=== PATIENT | female | born 1965 | race Caucasian/White ===

== ENCOUNTER 2021-04-08 05:51 | Day surgery (SDC) | payer OTHER ==
[~2021-04-08] VITALS: Ht 160 cm; Wt 61.3 kg
[~2021-04-08 05:51] MED LIST: ALBU8.5H8 IH; ARIP5TAB37 PO; ASPI81TA39 PO; BACL10TA PO; CHOL100018 PO; FLUO-191 PO; FLUT16H NASAL; HYDR-3706 PO; IBUP-2070 PO; INSLAN SQ; INSU100V SQ; LISI2.5T13 PO; LORA-999 PO; LURA40TA2 PO; MELO-107 PO; METF-1211 PO; MOME13HF IH; MONT-35 PO; PRAZ5 PO; SIMV-260 PO; TOPI100T37 PO
[2021-04-08] MEDS ORDERED: LIDOCAINE 2% 30 ML JELLY TP ONE (05:52)
[2021-04-08] MEDS ORDERED: BENZOCAINE 20% 50 MCG/SPRAY 57 GM TP ONE (05:52)
[2021-04-08] MEDS ORDERED: ALBUTEROL SULFATE 2.5 MG/0.5 ML NEB SOLUTION NEB ONE (05:52)
[2021-04-08] MEDS ORDERED: SODIUM CHLORIDE 0.9% 1,000 ML IV ONE (06:30)
[2021-04-08 06:35] LABS: COVID AG,FIA SOURCE NASOPHARYNGEAL
[2021-04-08 07:27] LABS: GLUCOMETER DEV NAME(LOC) SDS.; GLUCOSE,POINT OF CARE 115 MG/DL (70-110)
[2021-04-08] MEDS ORDERED: MIDAZOLAM HCL 5 MG/ML VIAL ONE (07:41)
[2021-04-08] MEDS ORDERED: FentaNYL CITRATE PF 100 MCG/2 ML VIAL ONE (07:41)
[2021-04-08] MEDS ORDERED: MethylPREDNISolone SOD SUCC 125 MG/2 ML VIAL IVP ONE (09:30)
[2021-04-08] MEDS ORDERED: MethylPREDNISolone SOD SUCC 125 MG/2 ML VIAL ONE (09:30)
== END 2021-04-08 10:45 | disposition home or self-care (01) ==
LOC: SURGERY 05:51
PROVIDERS: ATTEND Internal Medicine Critical Care Medicine
DX: J38.4 Edema of larynx (principal); B37.0 Candidal stomatitis; Z79.899 Other long term (current) drug therapy; F17.210 Nicotine dependence, cigarettes, uncomplicated; Z98.890 Other specified postprocedural states; Z88.8 Allergy status to other drugs, medicaments and biological substances
CPT/HCPCS: 31623; 31624; 71045; 82962; 87015; 87070; 87101; 87206; 87220; 87252; 87426; 88184; 88185; C9803; J2250; J2930; J3010; 88112; 88312; J7613